=== PATIENT | male | born 1980 | race Two or more races ===

== ENCOUNTER 2018-04-19 07:19 | Emergency (ER) | payer SELFPAY ==
[~2018-04-19] VITALS: Ht 177.8 cm; Wt 105.0 kg
[2018-04-19] MEDS ORDERED: ROBITUSSIN100 MG/5 M PO (09:09)
[2018-04-19] MEDS ORDERED: PREDNISONE20 MG PO (09:09)
[2018-04-19] MEDS ORDERED: FLONASE16 G1 BOTH NARES (09:09)
[2018-04-19 09:19] VITALS: BP 111/57
== END 2018-04-19 09:25 | disposition home or self-care (01) ==
LOC: EME 07:19
PROVIDERS: Nurse Practitioner Family
DX: J06.9 Acute upper respiratory infection, unspecified (principal); F17.200 Nicotine dependence, unspecified, uncomplicated
CPT/HCPCS: 71046; 87502; 94640; 99281; 99285